=== PATIENT | female | born 1960 | race African-American/Black ===

== ENCOUNTER 2024-07-07 17:11 | Emergency (ER) | payer OTHER ==
[~2024-07-07] VITALS: Ht 170.2 cm; Wt 86.0 kg
[2024-07-07 17:25] VITALS: O2SAT 99
[2024-07-07 19:58] VITALS: BP 113/70; PULSE 80; RESP 15; TEMP 36.78072; O2SAT 96
== END 2024-07-07 19:59 | disposition home or self-care (01) ==
LOC: ER 17:11
DX: F12.90 Cannabis use, unspecified, uncomplicated (principal); Z00.00 Encounter for general adult medical examination without abnormal findings
CPT/HCPCS: 99283